=== PATIENT | male | born 2000 | race Hispanic/Latino ===

== ENCOUNTER 2022-05-26 06:37 | Emergency (ER) | payer OTHER ==
[~2022-05-26] VITALS: Ht 170.2 cm; Wt 66.2 kg
[2022-05-26 07:32] VITALS: BP 127/71
== END 2022-05-26 08:25 ==
LOC: EDH 06:37
DX: S00.83XA Contusion of other part of head, initial encounter (principal); Z02.79 Encounter for issue of other medical certificate; V89.2XXA Person injured in unspecified motor-vehicle accident, traffic, initial encounter; Y93.I9 Activity, other involving external motion; Y92.410 Unspecified street and highway as the place of occurrence of the external cause; Y99.8 Other external cause status
CPT/HCPCS: 99282